=== PATIENT | female | born 1960 | race Two or more races ===

== ENCOUNTER 2023-07-19 07:36 | Outpatient (CLI) | payer OTHER | END 2023-07-19 07:37 | disposition home or self-care (01) | LOC: NUCLEAR 07:36 | DX: R07.9 Chest pain, unspecified (principal) | CPT/HCPCS: 78452; 93017; A9500; J0153 ==

== ENCOUNTER 2024-12-28 12:06 | Inpatient (IN) | payer OTHER ==
[~2024-12-28] VITALS: Ht 157.5 cm; Wt 108.9 kg
[2024-12-28] MEDS ORDERED: FARXIGA10 MG PO (12:31)
[2024-12-28] MEDS ORDERED: WELLBUTRIN XL300 MG PO (12:31)
[2024-12-28] MEDS ORDERED: TRAZODONE HCL150 MG PO (12:31)
[2024-12-28] MEDS ORDERED: CLONAZEPAM0.5 MG PO (12:32)
[2024-12-28] MEDS ORDERED: LIPITOR40 MG PO (12:32)
[2024-12-28] MEDS ORDERED: SYNTHROID75 MCG PO (12:32)
[2024-12-28] MEDS ORDERED: QUETIAPINE FUM400 M1 PO (12:32)
[2024-12-28] MEDS ORDERED: ZESTRIL5 MG PO (12:32)
--- NOTE | 2024-12-28 12:44 | NUR ---
PACIENTE ALERTA Y ORIENTADA X3 QUEN REFIERE QUE LLEVA ANATOLIY SEMANA CON MAREOS, PACIENTE REFIERE QUE EL DR YUNG ARELLANO LA ENVIA A MIRANDA DE EMERGENCIAS POR LABORATORIOS ALTERADOS. AL MOMENTO PACIENTE REFIERE SENTIRSE MAREADA Y CON DEBILIDAD EN LAS PIERNAS. PACIENTE REFIERE PADECE DE PRESIONES BAJAS.
[2024-12-28] MEDS ORDERED: 0.9 % SODIUM CHLORIDE 250 ML IV ONE (15:00)
[2024-12-28 15:50] LABS: HEMOGLOBIN 12.9 g/dL (12.0-15.00); MEAN CELL VOLUME 92.9 fL (80.00-100.00); MEAN CORPUSCULAR HGB CONC 32.3 g/dl (32.0-36.0); PLATELET COUNT 289 K/uL (150-450); RED CELL DISTRIBUTION WIDTH 14.1 % (11.5-14.5)
--- NOTE | 2024-12-28 16:05 | NUR ---
SE EDUCA A PTE SOBRE TX MEDICO, SE ALYSSA MEUSTRAS DE LABORATORIO UTILIZANDO MEDIDAS ASEPTICAS. SE COLOCA H/L ADELE DE EDEMA. SE ADMINISTRA IV FLUIDS GAYATRI ORDEN MEDICA. SE NOTIFICAN RX Y CT PENDIENTES A REALIZAR. PTE EN ESPERA DE CONSULTA CON MEDICINA INTERNA.
[2024-12-28 16:11] LABS: PARTIAL THROMBOPLASTIN TIME 24.4 SECONDS (22.0-34.0); PROTHROMBIN TIME 10.9 SECONDS (9.0-11.5)
[2024-12-28 16:16] LABS: ALBUMIN 4.2 gm/dL (3.4-5.0); BILIRUBIN TOTAL 0.17 mg/dL (0.3-1.2); CALCIUM 9.6 mg/dL (8.5-10.1); CREATININE SERUM 2.91 mg/dL (0.55-1.02); GFR 16.17; GLOBULINA 3.9 G/DL (2.4-3.5); MAGNESIUM 3.4 mg/dL (1.8-2.4); PHOSPHOROUS 3.9 mg/dL (2.5-4.9); POTASSIUM 5.74 mEq/L (3.5-5.1); TOTAL PROTEIN 8.1 gm/dL (6.4-8.2)
[2024-12-28] MEDS ORDERED: 0.9 % SODIUM CHLORIDE 1,000 ML IV SCH (18:45)
[2024-12-28] MEDS ORDERED: SODIUM POLYSTYRENE SULFONATE 15 G/4 TSP TSP PO SCH (18:54)
[2024-12-28] MEDS ORDERED: ACETAMINOPHEN 500 MG GEL..CAP PO PRN (19:00)
[2024-12-28] MEDS ORDERED: 0.9 % SODIUM CHLORIDE 1,000 ML IV ONE (19:00)
[2024-12-28] MEDS ORDERED: INSULIN LISPRO 1,000 UNIT/10 ML UNITS SUBCUTANEO PRN (19:00)
[2024-12-28] MEDS ORDERED: DEXTROSE 50 % IN WATER 0.5 G/ML DISP.SYRIN IV PRN (19:00)
[2024-12-28 21:28] VITALS: BP 120/62; O2SAT 99
[2024-12-28 21:31] LABS: PARTIAL THROMBOPLASTIN TIME 21.8 SECONDS (22.0-34.0); PROTHROMBIN TIME 10.9 SECONDS (9.0-11.5)
[2024-12-29] VITALS (9 sets, daily range): BP systolic 120–138; BP diastolic 50–85; O2SAT 94–97
[2024-12-29] MEDS ORDERED: LEVOTHYROXINE SODIUM 75 MCG TABLET PO SCH (06:00)
[2024-12-29 07:40] LABS: CREATININE SERUM 2.15 mg/dL (0.55-1.02); GFR 22.93; POTASSIUM 4.97 mEq/L (3.5-5.1)
[2024-12-29 07:42] LABS: TSH 5.16 uIU/mL (0.358-3.74)
[2024-12-29] MEDS ORDERED: BUPROPION HCL 150 MG TABLET.SA PO SCH (09:00)
[2024-12-29] MEDS ORDERED: QUETIAPINE FUMARATE 25 MG TABLET PO SCH (09:00)
[2024-12-29] MEDS ORDERED: ENOXAPARIN SODIUM 30 MG/0.3 ML SYRINGE SUBCUTANEO SCH (09:00)
[2024-12-29] MEDS ORDERED: ASPIRIN 81 MG TAB.CHEW PO SCH (09:00)
[2024-12-29] MEDS ORDERED: FAMOTIDINE/PF 20 MG in 0.9 % SODIUM CHLORIDE 8 ML IV PUSH SCH (09:00)
[2024-12-29] MEDS ORDERED: ATORVASTATIN CALCIUM 40 MG TABLET PO SCH (09:00)
[2024-12-29 09:03] LABS: PH,URINE 5.5 (5.0-8.0); URINE APPEARANCE Clear; URINE BILIRRUBIN Negative (NEGATIVE); URINE BLOOD Negative; URINE COLOR Yellow; URINE KETONE Negative (NEGATIVE); URINE LEUKOCYTE Negative; URINE NITRATE Negative; URINE PROTEIN Negative (NEGATIVE); URINE UROBILINOGEN 0.2 E.U./dl
[2024-12-29 09:07] LABS: URINE BACTERIA 13.4 uL (0.0-1933)
[2024-12-29 10:08] LABS: URINE CAST 0.14 uL (0.0-1.40); URINE EPITHELIAL CELLS 1.1 uL (0.0-38.8); URINE GLUCOSE 500 MG/DL (NEGATIVE); URINE WBC 1.4 uL (0.0-23.2)
[2024-12-29] MEDS ORDERED: RISPERIDONE 0.5 MG TABLET PO SCH (17:00)
[2024-12-29] MEDS ORDERED: TRAZODONE HCL 50 MG TABLET PO SCH (17:00)
[2024-12-30] VITALS (8 sets, daily range): BP systolic 99–148; BP diastolic 50–76; O2SAT 96–99
[2024-12-30] MEDS ORDERED: LEVOTHYROXINE SODIUM 100 MCG TABLET PO SCH (06:00)
[2024-12-30 07:19] LABS: ALBUMIN 3.2 gm/dL (3.4-5.0); CALCIUM 9.1 mg/dL (8.5-10.1); CREATININE SERUM 1.66 mg/dL (0.55-1.02); GFR 30.91; PHOSPHOROUS 3.1 mg/dL (2.5-4.9); POTASSIUM 5.19 mEq/L (3.5-5.1)
[2024-12-30] MEDS ORDERED: RIVAROXABAN 10 MG TAB PO SCH (09:00)
[2024-12-30] MEDS ORDERED: SUCRALFATE 1 G TABLET PO SCH (09:00)
[2024-12-30] MEDS ORDERED: CLONAZEPAM 0.5 MG TABLET PO SCH (09:00)
[2024-12-30] MEDS ORDERED: TEMAZEPAM 15 MG CAPSULE PO SCH (21:00)
[2024-12-31 00:25] VITALS: O2SAT 97
[2024-12-31 02:04] VITALS: BP 116/59; O2SAT 96
[2024-12-31 05:20] VITALS: O2SAT 96
[2024-12-31 05:32] LABS: CALCIUM 9.3 mg/dL (8.5-10.1); CREATININE SERUM 1.51 mg/dL (0.55-1.02); GFR 34.48; POTASSIUM 4.73 mEq/L (3.5-5.1)
[2024-12-31 09:23] VITALS: BP 107/60
[2024-12-31] MEDS ORDERED: LIPITOR40 M1 PO (09:47)
[2024-12-31] MEDS ORDERED: XARELTO10 MG PO (09:47)
[2024-12-31] MEDS ORDERED: WELLBUTRIN SR150 MG PO (09:48)
[2024-12-31] MEDS ORDERED: CLONAZEPAM0.5 MG PO (09:48)
[2024-12-31] MEDS ORDERED: RESTORIL15 MG PO (09:49)
[2024-12-31] MEDS ORDERED: RISPERDAL0.5 MG PO (09:49)
[2024-12-31] MEDS ORDERED: FARXIGA10 MG PO (09:50)
[2024-12-31] MEDS ORDERED: CARAFATE1 GM PO (09:50)
[2024-12-31] MEDS ORDERED: SYNTHROID100 MCG PO (09:51)
[2024-12-31] MEDS ORDERED: NEURONTIN300 MG PO (09:52)
[2024-12-31] MEDS ORDERED: VITAMIN B12-FO1 EACH PO (09:53)
[2024-12-31] MEDS ORDERED: LANTUS SOL100 UNIT/1 SUBCUTANEO (09:58)
== END 2024-12-31 10:26 | disposition home or self-care (01) | DRG 315 ==
LOC: ER 12:06 → MEDJ 19:14
PROVIDERS: Emergency Medicine; General Practice; Internal Medicine Endocrinology, Diabetes & Metabolism; Specialist/Technologist, Other Nephrology; ADMIT Internal Medicine; ATTEND Internal Medicine
PROC: B020ZZZ Computerized Tomography (CT Scan) of Brain (ICD-10-PCS; 2024-12-28)
PROC: BT43ZZZ Ultrasonography of Bilateral Kidneys (ICD-10-PCS; 2024-12-28)
PROC: 4A12X4Z Monitoring of Cardiac Electrical Activity, External Approach (ICD-10-PCS; principal; 2024-12-29)
PROC: B246ZZZ Ultrasonography of Right and Left Heart (ICD-10-PCS; 2024-12-29)
DX: I95.9 Hypotension, unspecified (principal); N17.9 Acute kidney failure, unspecified; N18.4 Chronic kidney disease, stage 4 (severe); R55 Syncope and collapse; E87.5 Hyperkalemia; E11.65 Type 2 diabetes mellitus with hyperglycemia; I12.9 Hypertensive chronic kidney disease with stage 1 through stage 4 chronic kidney disease, or unspecified chronic kidney disease; E11.22 Type 2 diabetes mellitus with diabetic chronic kidney disease; E03.9 Hypothyroidism, unspecified